=== PATIENT | female | born 1945 | race Caucasian/White ===

== ENCOUNTER 2017-05-05 13:46 | Emergency (ER) | payer MEDICARE, OTHER ==
[2017-05-05 16:00] VITALS: BP 147/76
[2017-05-05] MEDS ORDERED: Diphtheria,Pertussis(Acell),Tetanus Vaccine 0.5 ML SDV IM ONE (17:20)
--- NOTE | 2017-05-05 17:21 | EDM.PDOC ---
ED HPI GENERAL MEDICAL PROBLEM - General Chief Complaint: Bite:Animal, Insect Stated Complaint: DOG BITE L HAND Time Seen by Provider: 05/05/17 17:12 Source of Information: Reports: Patient, RN Notes Reviewed History Limitations: Reports: No Limitations - History of Present Illness INITIAL COMMENTS - FREE TEXT/NARRATIVE: 71-year-old female presents emergency department today with complaint of dog bite to her left hand she was bitten by her friend's dog she states the shots are up-to-date - Related Data Allergies Allergy/AdvReac Type Severity Reaction Status Date / Time No Known Allergies Allergy Verified 05/05/17 16:00 Home Meds: Home Meds ALPRAZolam [Alprazolam] 1 tab PO DAILY 05/05/17 [History] Aspirin [Halfprin] 1 tab PO DAILY 05/05/17 [History] Cholecalciferol (Vitamin D3) [Vitamin D] 6,000 units PO DAILY 05/05/17 [History] Levothyroxine Sodium [Synthroid] 1 tab PO DAILY 05/05/17 [History] Sertraline [Zoloft] 1 tab PO DAILY 05/05/17 [History] Simvastatin [Simvastatin] 1 tab PO BEDTIME 05/05/17 [History] Past Medical History Cardiovascular History: Reports: High Cholesterol, Hypertension [employer]IST History: Reports: Musculoskeletal History: Reports: Fracture Endocrine/Metabolic History: Reports: Hypothyroidism Social & Family History - Tobacco Use Smoking Status *Q: Former Smoker Years of Tobacco use: 25 Packs/Tins Daily: 1 Used Tobacco, but Quit: Yes Month Tobacco Last Used: october Second Hand Smoke Exposure: Yes - Caffeine Use Caffeine Use: Reports: Coffee - Recreational Drug Use Recreational Drug Use: No ED ROS GENERAL - Review of Systems Review Of Systems: See Below Constitutional: Reports: No Symptoms Skin: Reports: Wound ED EXAM, ANIMAL BITE - Physical Exam Exam: See Below Text/Narrative:: Examination of the left hand she does have a small flap of skin partially through the dermis it is approximately half centimeter total length radial pulses 2+ full range of motion all digits Exam Limited By: No Limitations General Appearance: Alert, WD/WN, No Apparent Distress ED ANIMAL BITE PROCEDURES - Laceration/Wound Repair Left Hand Lac/Wound Length In cm: 0.5 Appearance: Subcutaneous Distal NVT: Neuro & Vascular Intact, No Tendon Injury Skin Prep: Saline Exploration/Debridement/Repair: Wound Explored, in a Bloodless Field, Explored to Base Closed With: Dermabond Sterile Dressing Applied: Provider Tetanus Status Addressed: Yes Complications: No Course - Vital Signs Last Recorded V/S: Last Vital Signs Temp 98.5 F 05/05/17 16:15 Pulse 65 05/05/17 16:15 Resp 16 05/05/17 16:15 BP 147/76 H 05/05/17 16:15 Pulse Ox 96 05/05/17 16:15 Departure - Departure Time of Disposition: 17:21 Disposition: Home, Self-Care 01 Condition: Good Clinical Impression: Dog bite Qualifiers: Encounter type: initial encounter Qualified Code(s): W54.0XXA - Bitten by dog, initial encounter - Discharge Information Forms: ED Department Discharge Additional Instructions: Take full course of antibiotics, Please followup with your primary care provider in 3-5 days if not better, please call return to the emergency department with worsening of symptoms. - Assessment/Plan Plan: Assessment Acuity = acute Site and laterality = dog bite left hand Etiology = dog Manifestations = none Location of injury = Home Lab values = home Plan She was placed on Augmentin the wound was closed with Dermabond follow-up with primary care as needed Patient was in agreement with the plan all questions were answered, they were instructed to return to the emergency department or call for worsening symptoms. This note was dictated using [employer] voice recognition software please call with any questions.
== END 2017-05-05 17:53 | disposition home or self-care (01) ==
LOC: JP.ED 13:46
DX: S61.452A Open bite of left hand, initial encounter (principal); E78.00 Pure hypercholesterolemia, unspecified; I10 Essential (primary) hypertension; E03.9 Hypothyroidism, unspecified; Z87.891 Personal history of nicotine dependence; Z79.82 Long term (current) use of aspirin; Z79.899 Other long term (current) drug therapy; W54.0XXA Bitten by dog, initial encounter
CPT/HCPCS: 12001; 90471; 90715; 99282-25; 99283-25